=== PATIENT | male | born 1950 | race Caucasian/White ===

== ENCOUNTER 2016-11-27 13:47 | Emergency (ER) | payer OTHER ==
[~2016-11-27] VITALS: Ht 177.8 cm; Wt 82.0 kg
[~2016-11-27 13:47] MED LIST: ADVAIR 250/501 DISK IH; ADVAIR IH; BABY ASPIRIN81 M1 PO; BENADRYL25 MG PO; CARDURA2 M1 PO; DOXAZOSIN MESYLA2 MG; DOXAZOSIN PO; EPIPEN ADU0.3 MG/0.3; HYTRIN2 MG PO; IBUPROFEN800 MG; IMDUR30 MG PO; LANSOPRAZOLE30 MG; LIPITOR PO; LO-DOSE ASPIRIN81 M1 PO; LOPRESSOR25 MG PO; METOPROLOL TART25 MG PO; NEXIUM PO; NEXIUM40 MG PO; NITROGLYCERIN0.4 MG SL; PERCOCET 5/31 TABLET PO; TERAZOSIN HCL2 MG PO; TYLENOL EXTRA500 MG PO
[2016-11-27 14:25] LABS: HEMATOCRIT 45.2 % (38.0-50.0); MCH 32.5 PG (29.0-34.0); MCHC 33.8 G/DL (30.0-36.0); PLATELET COUNT 160 K/uL (156-360); RBC DIS.WIDTH-CV 13.8 % (11.8-14.6); RED BLOOD COUNT 4.71 M/uL (4.00-5.50); WHITE BLOOD COUNT 9.2 K/uL (4.1-10.2)
[2016-11-27 14:35] LABS: CHLORIDE 106 mEq/L (99-109); SODIUM 139 mEq/L (136-147)
[2016-11-27 14:37] LABS: GLUCOSE 88 mg/dL (70-99)
[2016-11-27 14:38] LABS: ANION GAP 8 MEQ/L (2-14)
[2016-11-27 14:41] LABS: GFR ESTIMATE (CALCULATED) > 59 mL/min/
[2016-11-27 14:42] LABS: UREA NITROGEN (BUN) 12 mg/dL (9-23)
[2016-11-27] MEDS ORDERED: ISOSORBIDE DINI20 MG PO (16:12)
[2016-11-27] MEDS ORDERED: TOPROL XL25 MG PO (16:15)
[2016-11-27] MEDS ORDERED: ATORVASTATIN CA10 MG PO (16:16)
[2016-11-27] MEDS ORDERED: CHLORTHALIDONE25 MG PO (16:17)
[2016-11-27] MEDS ORDERED: NEXIUM40 MG PO (16:17)
[2016-11-27] MEDS ORDERED: TERAZOSIN HCL2 MG PO (16:18)
[2016-11-27] MEDS ORDERED: ZITHROMAX Z-PA250 MG PO (19:07)
[2016-11-27 19:14] VITALS: BP 124/68
== END 2016-11-27 19:21 | disposition home or self-care (01) ==
LOC: RME 13:47 → EME 13:47 → RME 19:21
DX: J44.1 Chronic obstructive pulmonary disease with (acute) exacerbation (principal); F17.200 Nicotine dependence, unspecified, uncomplicated; I10 Essential (primary) hypertension; Z88.0 Allergy status to penicillin
CPT/HCPCS: 71020; 80048; 83880; 85027; 94640; 99281; 99285